=== PATIENT | female | born 2005 | race Caucasian/White ===

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

== ENCOUNTER → 2023-12-06 | Outpatient (CLI) | payer SELFPAY ==
--- NOTE | 2023-12-06 14:33 | US_ITS ---
EXAM: US PELVIS TRANSABDOMINAL AND TRANSVAGINAL, COMPLETE CLINICAL INDICATION: PCOS TECHNIQUE: Transabdominal and transvaginal pelvic ultrasound was performed with grayscale and color Doppler imaging. Transvaginal imaging was used for better evaluation of the endometrium and adnexa. COMPARISON: No relevant prior studies available. FINDINGS: UTERUS/CERVIX: Unremarkable. Anteverted. There is no uterine mass. The uterus measures 6.4 x 4.0 x 2.5 cm. The endometrial stripe measures 0.5 cm in thickness. RIGHT OVARY: Numerous small follicles are seen in the periphery of the right ovary. Blood flow is present in the right ovary. The right ovary measures 3.7 x 2.2 x 2.3 cm with a volume of 9.81 ml. LEFT OVARY: Numerous small follicles are seen in the periphery of the left ovary. Blood flow is present in the left ovary. The left ovary measures 3.6 x 2.7 x 2.0 cm with a volume of 10.2 ml. FREE FLUID: None. BLADDER: Unremarkable as visualized. Wall is normal thickness for degree of distention. US/Pelvic w/ Transvaginal IMPRESSION: Numerous small follicles in the periphery of the ovaries bilaterally suggestive of polycystic ovary disease. Electronically Signed: Servando Malone MD at 7:40 EDT ,
[2023-12-06 16:32] LABS: ALB/GLOB Ratio 1.2 RATIO (0.9-2.4); AST(SGOT) 12 U/L (15-37); Alanine Aminotransfer ALT/SGPT 16 U/L (13-56); Albumin, Serum 4.2 g/dL (3.2-5.0); Alkaline Phosphatase 62 U/L (45-117); Anion Gap 7 (5-15); BUN 9 mg/dL (7-18); BUN/Creat Ratio 11.7 RATIO (10-20); Calcium,Total 9.3 mg/dL (8.5-10.1); Chloride 108 mmol/L (98-107); Creatinine, Serum 0.77 mg/dL (0.55-1.02); EST Glomerular Filtration Rate 102 mL/min (>60); Est Glom Filt Rate - Afr Amer 123 mL/min (>60); Globulin 3.6 g/dL (2.2-4.2); Glucose 98 mg/dL (74-106); Potassium 3.8 mmol/L (3.5-5.1); Protein, Total 7.8 g/dL (6.4-8.2); Sodium Level 141 mmol/L (136-145); T4 Total, Thyroxin 7.8 ug/dL (4.8-13.9)
== END | disposition home or self-care (01) ==
PROVIDERS: PCP Family Medicine; Referring Provider Nurse Practitioner Family; Visit Provider Nurse Practitioner Family
DX: E28.2 Polycystic ovarian syndrome (principal)
CPT/HCPCS: 36415; 76830; 76856; 80053; 84436; 84443